=== PATIENT | female | born 1955 | race Caucasian/White ===

== ENCOUNTER 2017-08-12 09:19 | Emergency (ER) | payer BC ==
[~2017-08-12] VITALS: Ht 170.2 cm; Wt 98.0 kg
[~2017-08-12 09:19] MED LIST: Z.0.ADIPEX-P37.5 MG; Z.0.LISINOPRIL10 MG; Z.0.ZOCOR40 MG
[2017-08-12 11:41] LABS: BASOPHILS # (AUTO) 0.1 (0.0-0.1); BASOPHILS % 1.2 % (0.0-1.0); EOSINOPHILS # (AUTO) 0.2 (0.0-0.4); EOSINOPHILS % 3.8 % (0.0-6.0); HEMATOCRIT 38.7 % (34.2-44.1); HEMOGLOBIN 13.3 g/dL (12.0-16.0); LYMPHOCYTES # (AUTO) 1.4 (1.0-3.2); MEAN CORPUSCULAR HGB CONC 34.4 g/dL (31-35); MEAN CORPUSCULAR VOLUME 93.3 fL (81-99); MONOCYTES # (AUTO) 0.4 (0.2-0.8); MONOCYTES % 7.7 % (4.4-11.3); NEUTROPHILS # (AUTO) 3.5 (2.1-6.9); PLATELET COUNT 263 x10e3/uL (140-360); RED BLOOD COUNT 4.15 x10e6/uL (3.6-5.1); RED CELL DISTRIBUTION WIDTH 12.4 % (11.7-14.4)
[2017-08-12 11:45] LABS: INR 0.85; PARTIAL THROMBOPLASTIN TIME 26.8 seconds (23.8-35.5)
--- NOTE | 2017-08-12 11:54 | Diagnostic Imaging Report ---
PROCEDURE: CHEST SINGLE (PORTABLE) COMPARISON: 07/05/2008 INDICATIONS: CHEST PAIN FINDINGS: The lungs remain well inflated. No focal consolidation, pleural effusion, or pneumothorax. Cardiomediastinal contour and pulmonary vasculature are within normal limits for portable, AP technique. No acute osseous abnormality. CONCLUSION: No acute cardiopulmonary abnormality. Dictated by: Zaki Palencia M.D. on 08/12/2017 at 12:02 Electronically approved by: Zaki Palencia M.D. on 08/12/2017 at 12:02
[2017-08-12 11:55] LABS: ALANINE AMINOTRANSFERASE 20 IU/L (0-55); ALBUMIN 3.6 g/dL (3.5-5.0); ALBUMIN/GLOBULIN RATIO 1.1 (0.8-2.0); ALKALINE PHOSPHATASE 62 IU/L (40-150); ANION GAP 11.7 mmol/L (8-16); BLOOD UREA NITROGEN 10 mg/dL (7-26); BUN/CREATININE RATIO 11 (6-25); CARBON DIOXIDE 27 mmol/L (22-29); CHLORIDE 106 mmol/L (98-107); CREATINE KINASE 78 IU/L (29-168); CREATININE, SERUM 0.87 mg/dL (0.57-1.11); EST GLOMERULAR FILTRATION RATE > 60 ML/MIN (60-); GLUCOSE 107 mg/dL (74-118); POTASSIUM 3.7 mmol/L (3.5-5.1); SODIUM 141 mmol/L (136-145)
[2017-08-12 12:02] LABS: TROPONIN I < 0.001 ng/mL (0-0.300)
[2017-08-12] MEDS ORDERED: LIPITOR20 MG PO (13:30)
[2017-08-12] MEDS ORDERED: PLAVIX75 MG PO (13:30)
[2017-08-12] MEDS ORDERED: ASPIRIN325 MG PO (13:30)
[2017-08-12 18:37] VITALS: BP 142/83
== END 2017-08-12 18:43 | disposition home or self-care (01) ==
LOC: ER 09:19
DX: R07.9 Chest pain, unspecified (principal); R06.00 Dyspnea, unspecified; R11.0 Nausea; E78.5 Hyperlipidemia, unspecified
CPT/HCPCS: 36415; 71010; 80053; 82550; 82553; 83880; 84484; 85025; 85610; 85730; 93005; 99284

== ENCOUNTER → 2025-04-06 | Day surgery (SDC) | payer MEDICARE ==
[2025-04-01 09:22] LABS: BASOPHILS % 0.9 % (0.0-1.0); EOSINOPHILS % 4.1 % (0.0-6.0); LYMPHOCYTES % 28.8 % (18.0-39.1); MONOCYTES % 6.9 % (4.4-11.3); NEUTROPHILS % 59.1 % (38.7-80.0); RED CELL DISTRIBUTION WIDTH 12.1 % (11.7-14.4)
[~2025-04-06] MED LIST changes: +ACETAMINOPHEN 1000 MG/100 ML 100 ML IV ONE; +ASPIRIN325 MG PO; +BARIATRIC MV-I1 EACH; +CALCIUM; +DEXAMETHASONE SOD PHOS INJ 4 MG/ML SDV ONE; +EPHEDRINE SULFATE INJ 50 MG/ML VIAL ONE; +FAMOTIDINE 20 MG/2 ML VIAL IV ONE; +FENTANYL CITRATE/PF 100MCG/2 ML INJ ONE; +GLYCOPYRROLATE INJ 0.2 MG/ML VIAL ONE; +LIDOCAINE HCL 2% LOCAL INJ 5 ML SDV VIAL INJ ONE; +LIPITOR20 MG PO; +NEXIUM40 MG PO; +ONDANSETRON HCL INJ 2MG/ML 2ML 2 MG/ML VIAL ONE; +PLAVIX75 MG PO; +PROPOFOL IV EMULSION 10 MG/ML 20 ML VIAL ONE
[2025-04-06] MEDS: CEFAZOLIN SODIUM 2 GM ONE (05:57)
[2025-04-06] MEDS: LACTATED RINGER'S 1,000 ML ONE (05:57)
[2025-04-06 10:56] VITALS: BP 123/59; PULSE 67; RESP 18; O2SAT 99
== END | disposition home or self-care (01) ==
LOC: OR 05:25
PROVIDERS: ATTEND Podiatrist Foot & Ankle Surgery
DX: M20.41 Other hammer toe(s) (acquired), right foot (principal); M20.11 Hallux valgus (acquired), right foot; M77.51 Other enthesopathy of right foot and ankle; G57.51 Tarsal tunnel syndrome, right lower limb; I83.91 Asymptomatic varicose veins of right lower extremity; E78.5 Hyperlipidemia, unspecified; K21.9 Gastro-esophageal reflux disease without esophagitis; Z88.6 Allergy status to analgesic agent; Z88.8 Allergy status to other drugs, medicaments and biological substances; Z01.810 Encounter for preprocedural cardiovascular examination; Z01.812 Encounter for preprocedural laboratory examination; Z79.899 Other long term (current) drug therapy; Z86.73 Personal history of transient ischemic attack (TIA), and cerebral infarction without residual deficits
CPT/HCPCS: 28035; 28285 ×2; 28298; 28308; 36415; 71046; 85025; 88304; 88311; 93005; C1713 ×6; J0131; J1100; J1308; J2003; J2405; J2704; J3010; J7121